=== PATIENT | female | born 1995 | race African-American/Black ===

== ENCOUNTER → 2016-11-23 | Outpatient (CLI) | payer BC ==
[2016-11-23 19:53] LABS: CHLAM PCR NOT DETECTED (NOT DETECT)
== END ==
LOC: LAB 18:16
PROVIDERS: ATTEND Nurse Practitioner Acute Care
DX: Z11.3 Encounter for screening for infections with a predominantly sexual mode of transmission (principal)
CPT/HCPCS: 87491; 87591

== ENCOUNTER 2017-08-14 22:05 | Emergency (ER) | payer BC ==
--- NOTE | 2017-08-15 00:48 | ER Document Report ---
ED General - General Chief Complaint: Shortness Of Breath Stated Complaint: CHEST PAINS Time Seen by Provider: 08/15/17 00:07 Mode of Arrival: Ambulatory Information source: Patient Notes: 22-year-old female presented to ED for complaint of right-sided chest wall pain with shortness of breath dizziness intermittently for a week. She denies any injury. She states she has no cardiac history. Her mother and father have no cardiac history. Her grandmother did have a cardiac history after having diabetes. Patient states the only past medical history she has is with the cough as a child. Patient is not on any control. She has not had any long trips. TRAVEL OUTSIDE OF THE [place] IN LAST 30 DAYS: No - HPI Onset: Last week Onset/Duration: Intermittent Quality of pain: Achy, Sharp Severity: Moderate Pain Level: 2 Associated symptoms: Chest pain - Wall pain to the right side, Shortness of breath - Intermittently, Other - Dizziness intermittently Exacerbated by: Denies Relieved by: Denies Similar symptoms previously: Yes Recently seen / treated by doctor: No - Related Data Allergies/Adverse Reactions: No Known Allergies Allergy (Verified 03/06/14 11:58) Past Medical History - General Information source: Patient - Social History Smoking Status: Current Every Day Smoker Cigarette use (# per day): Yes - 2-3 cigarettes a day Chew tobacco use (# tins/day): No Smoking Education Provided: Yes - Less than 2 minutes Frequency of alcohol use: Social Drug Abuse: None Occupation: None Lives with: Spouse/Significant other Family History: Arthritis, CAD, CVA, DM, Hyperlipidemia, Hypertension. denies: Malignancy, Thyroid Disfunction Patient has suicidal ideation: No Patient has homicidal ideation: No - Past Medical History Cardiac Medical History: Reports: None Pulmonary Medical History: Reports: Other - Pertussis as a child EENT Medical History: Reports: None Neurological Medical History: Reports: None Endocrine Medical History: Reports: None Renal/ Medical History: Reports: None Malignancy Medical History: Reports: None GI Medical History: Reports: None Musculoskeltal Medical History: Reports None Skin Medical History: Reports None Psychiatric Medical History: Reports: None Traumatic Medical History: Reports: None Infectious Medical History: Reports: None Surgical Hx: Negative Past Surgical History: Reports: None Review of Systems - Review of Systems Constitutional: No symptoms reported EENT: No symptoms reported Cardiovascular: Chest pain - Right upper chest, Dizziness - Intermittently Respiratory: Short of breath - At times Gastrointestinal: No symptoms reported Genitourinary: No symptoms reported Female Genitourinary: No symptoms reported Musculoskeletal: No symptoms reported Skin: No symptoms reported Hematologic/Lymphatic: No symptoms reported Neurological/Psychological: No symptoms reported Physical Exam - Vital signs Vitals: Temp Pulse Resp BP Pulse Ox 99.1 F 75 16 105/64 99 08/14/17 22:21 08/14/17 22:21 08/14/17 22:21 08/14/17 22:21 08/14/17 22:21 Interpretation: Normal - General General appearance: Appears well, Alert - HEENT Head: Normocephalic, Atraumatic Eyes: Normal Pupils: PERRL Ears: Normal External canal: Normal Tympanic membrane: Normal Sinus: Normal Nasal: Swelling, Clear rhinorrhea Mouth/Lips: Normal Mucous membranes: Normal Pharynx: Normal Neck: Normal - Respiratory Respiratory status: No respiratory distress. No: Respiratory distress Chest status: Tender - Right upper chest Breath sounds: Normal. No: Decreased air movement, Nonproductive cough, Productive cough, Rales, Rhonchi, Stridor, Wheezing Chest palpation: Normal - Cardiovascular Rhythm: Regular Heart sounds: Normal auscultation Murmur: No - Abdominal Inspection: Normal Distension: No distension Bowel sounds: Normal Tenderness: Nontender Organomegaly: No organomegaly - Back Back: Normal, Nontender - Extremities General upper extremity: Normal inspection, Nontender, Normal color, Normal ROM , Normal temperature General lower extremity: Normal inspection, Nontender, Normal color, Normal ROM , Normal temperature, Normal weight bearing. No: Damian's sign - Neurological Neuro grossly intact: Yes Cognition: Normal Orientation: AAOx4 Corrie Coma Scale Eye Opening: Spontaneous [place] Coma Scale Verbal: Oriented Corrie Coma Scale Motor: Obeys Commands Corrie Coma Scale Total: 15 Speech: Normal Motor strength normal: LUE, RUE, LLE, RLE Sensory: Normal - Psychological Associated symptoms: Normal affect, Normal mood - Skin Skin Temperature: Warm Skin Moisture: Dry Skin Color: Normal Course - Re-evaluation Re-evalutation: 08/15/17 02:09 Chest x-ray and EKG negative. Patient has negative PERC score. Patient was treated with aspirin and instructed to follow-up with her primary doctor. Patient has no cardiac history her mother and father have no cardiac history mother has cholesterol and blood pressure grandmother had a cardiac history after having diabetes for many years - Vital Signs Vital signs: Temp Pulse Resp BP Pulse Ox 98.1 F 68 18 109/57 L 100 08/15/17 01:34 08/15/17 01:34 08/15/17 01:34 08/15/17 01:34 08/15/17 01:34 - Diagnostic Test Radiology reviewed: Image reviewed, Reports reviewed Discharge - Discharge Clinical Impression: Chest wall pain Condition: Stable Disposition: HOME, SELF-CARE Additional Instructions: CHEST WALL PAIN: Your chest pain may be coming from the chest wall. This is often caused by straining the muscles or joints in the chest during physical activity, direct trauma, coughing, or vigorous vomiting. Persons with arthritis are especially prone to this type of pain, due to inflammation of the cartilage joints near the breast bone. Occasionally, no cause can be found. Rest from strenuous physical activity. This kind of chest pain is usually made worse by movement of the chest. Depending on the symptoms, we may prescribe medicine for pain, muscle relaxation, and antiinflammatory effects. If the pain is new, and seems to be due to muscle strain, cold packs can help. Otherwise, apply gentle warmth to the painful area for 15 minutes every hour or two. You should call contact the doctor immediately if things change. Further evaluation is needed if you develop a fever or cough, if the nature of the pain changes, or if you become short of breath. ASPIRIN: Aspirin has been shown to have a beneficial effect on blood circulation by reducing the clotting effect of platelets in the blood. These beneficial effects can be achieved by taking just a single baby (81 mg) aspirin a day. It is recommended that any person over the age of forty take a single baby aspirin every day for heart and brain circulation, unless you are allergic to aspirin or have some significant bleeding disorder. It is strongly recommended that people who have proven cardiac or blood circulation disturbances should take a baby aspirin every day. FOLLOW-UP CARE: If you have been referred to a physician for follow-up care, call the physician s office for an appointment as you were instructed or within the next two days. If you experience worsening or a significant change in your symptoms, notify the physician immediately or return to the Emergency Department at any time for re-evaluation.
--- NOTE | 2017-08-15 01:10 | RADIOLOGY REPORT (SQ) ---
EXAM DESCRIPTION: CHEST PA/LAT CLINICAL HISTORY: chest pain COMPARISON: 03/06/2014 FINDINGS: Frontal and lateral views of the chest. The cardiomediastinal silhouette has normal size and contour. No consolidation, pneumothorax, or pleural effusion. No displaced rib fractures identified. Upper abdominal soft tissues are unremarkable. IMPRESSION: 1. No acute pulmonary process identified.
[2017-08-15] MEDS ORDERED: ASPIRIN 81 MG TABLET, CHEWABLE PO ONE (01:19)
[2017-08-15 01:35] VITALS: BP 109/57
--- NOTE | 2017-08-15 09:40 | EKG REPORT ---
SEVERITY:- OTHERWISE NORMAL ECG - SINUS ARRHYTHMIA, RATE 46-68 : Confirmed by: Eunice Corral 15-Aug-2017 09:39:34
== END 2017-08-15 01:47 | disposition home or self-care (01) ==
LOC: ER 22:05
DX: R07.89 Other chest pain (principal); R06.02 Shortness of breath; R42 Dizziness and giddiness; F17.210 Nicotine dependence, cigarettes, uncomplicated
CPT/HCPCS: 71020; 93005; 93010; 99285

== ENCOUNTER 2017-10-15 17:54 | Emergency (ER) | payer BC ==
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
[2017-10-16] MEDS ORDERED: ONDANSETRON 4 MG TAB.RAPDIS PO ONE (00:57)
[2017-10-16] MEDS ORDERED: AZITHROMYCIN 250 MG TABLET PO ONE (00:57)
[2017-10-16] MEDS ORDERED: LIDOCAINE 1% INJ-PF (10 MG/ML) 30 ML SDV INFIL ONE (00:57)
[2017-10-16] MEDS ORDERED: CEFTRIAXONE INJ 250 MG VIAL IM ONE (00:57)
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
[2017-10-16 02:01] VITALS: BP 109/77
[2017-10-16 03:34] LABS: CHLAM PCR DETECTED (NOT DETECT); GON PCR NOT DETECTED (NOT DETECT)
== END 2017-10-16 02:02 | disposition home or self-care (01) ==
LOC: ER 17:54
DX: T76.21XA Adult sexual abuse, suspected, initial encounter (principal); A54.9 Gonococcal infection, unspecified; F17.200 Nicotine dependence, unspecified, uncomplicated
CPT/HCPCS: 99285; 96372; 81025; 87491; 87591; S0119; J3490; J0696

== ENCOUNTER → 2019-05-14 | Outpatient (CLI) | payer OTHER ==
[2019-05-14 18:42] LABS: BACTERIA (WET MOUNT) 4+ BACTERIA SEEN; EPITHELIALS (WET MOUNT) 4+ EPITHELIALS SEEN; T.VAGINALIS (WET MOUNT) NO TRICHOMONAS SEEN; WBCS (WET MOUNT) 3+ WBCS SEEN; YEAST (WET MOUNT) NO YEAST SEEN
[2019-05-14 20:15] LABS: CHLAM PCR DETECTED (NOT DETECT)
== END ==
LOC: LAB 18:30
PROVIDERS: ATTEND Nurse Practitioner Acute Care
DX: N89.8 Other specified noninflammatory disorders of vagina (principal); R10.30 Lower abdominal pain, unspecified
CPT/HCPCS: 87086; 87088; 87210; 87491; 87591

== ENCOUNTER 2019-05-15 18:39 | Emergency (ER) | payer OTHER ==
[2019-05-15] MEDS ORDERED: ONDANSETRON HCL INJ/PF 4 MG/2 ML SDV IV ONE (19:12)
[2019-05-15] MEDS ORDERED: NORMAL SALINE 1000 ML 1,000 ML IV ONE (19:12)
--- NOTE | 2019-05-15 19:14 | ER Document Report ---
ED Medical Screen (RME) - General Chief Complaint: Abdominal Pain Stated Complaint: ABDOMINAL PAIN, BACK PAIN Time Seen by Provider: 05/15/19 19:04 Primary Care Provider: FRANDY CARRILLO NP [Primary Care Provider] - Follow up as needed Notes: Patient is a 24-year-old female who presents to the emergency department with a chief complaint of back pain and abdominal pain. Patient reports that on Monday she developed lower back pain that radiates into the mid back. Patient reports that this feels like a throbbing type of pain as well as burning. Patient denies injury or fall. Patient states later that day she did develop right mid abdominal pain. Patient reports his pain is worse when she lies down. Patient reports that this abdominal pain feels like contractions. Patient states her last bowel movement was Monday and this is not normal for her to be constipated. Patient reports increase gas and bloating. Patient states she was seen at the urgent care yesterday where she was given Robaxin and ibuprofen for her back pain. She states they did check a urine but not to the results for another few days. Patient reports nausea and dry heaving. Patient denies diarrhea. TRAVEL OUTSIDE OF THE [place] IN LAST 30 DAYS: No - Related Data Allergies/Adverse Reactions: No Known Allergies Allergy (Verified 05/15/19 18:40) Past Medical History Renal/ Medical History: Denies: Hx Peritoneal Dialysis Physical Exam - Vital signs Vitals: Temp Pulse Resp BP Pulse Ox 98.6 F 112 H 18 119/82 100 05/15/19 18:43 05/15/19 18:43 05/15/19 18:43 05/15/19 18:43 05/15/19 18:43 - Abdominal Inspection: Normal Distension: No distension Bowel sounds: Normal Tenderness: Nontender Organomegaly: No organomegaly Course - Re-evaluation Re-evalutation: 05/15/19 19:14 I have greeted and performed a rapid initial assessment of this patient. A comprehensive ED assessment and evaluation of the patient, analysis of test results and completion of the medical decision making process will be conducted by additional ED providers. - Vital Signs Vital signs: Temp Pulse Resp BP Pulse Ox 98.6 F 112 H 18 119/82 100 05/15/19 18:43 05/15/19 18:43 05/15/19 18:43 05/15/19 18:43 05/15/19 18:43 Doctor's Discharge - Discharge Referrals: FRANDY CARRILLO, CLINICAL SCIENCES PROFESSOR [Primary Care Provider] - Follow up as needed
[2019-05-15 19:56] LABS: ABSOLUTE LYMPHOCYTES (AUTO) 1.2 10^3/uL (0.5-4.7); ABSOLUTE MONOCYTES (AUTO) 0.8 10^3/uL (0.1-1.4); ABSOLUTE NEUT (AUTO) 6.8 10^3/uL (1.7-8.2); BASOPHILS % (AUTO) 0.3 % (0-2); EOSINOPHILS % (AUTO) 0.5 % (0-6); HEMOGLOBIN 15.1 g/dL (12.0-15.5); LYMPHOCYTES % (AUTO) 13.3 % (13-45); MEAN CORPUSCULAR HEMOGLOBIN 29.5 pg (27.0-33.4); MEAN CORPUSCULAR HGB CONC 32.9 g/dL (32.0-36.0); MEAN CORPUSCULAR VOLUME 90 fl (80-97); MONOCYTES % (AUTO) 9.3 % (3-13); PLATELET COUNT 192 10^3/uL (150-450); RED BLOOD COUNT 5.12 10^6/uL (3.72-5.28); RED CELL DISTRIBUTION WIDTH 13.4 % (11.5-14.0); SEGMENTED NEUTROPHILS % (AUTO) 76.6 % (42-78); TOTAL CELLS COUNTED % (AUTO) 100 %; WHITE BLOOD COUNT 8.9 10^3/uL (4.0-10.5)
[2019-05-15 20:00] LABS: APPEARANCE,URINE CLEAR; BILIRUBIN,URINE NEGATIVE (NEGATIVE); COLOR,URINE STRAW; GLUCOSE, URINE NEGATIVE (NEGATIVE); KETONES,URINE NEGATIVE (NEGATIVE); LEUKOCYTE ESTERASE,URINE TRACE (NEGATIVE); NITRITE,URINE NEGATIVE (NEGATIVE); PROTEIN,URINE NEGATIVE (NEGATIVE); URINE SPECIFIC GRAVITY 1.004; UROBILINOGEN,URINE NEGATIVE mg/dL (<2.0)
[2019-05-15 20:11] LABS: ALBUMIN 5.1 g/dL (3.5-5.0); ALKALINE PHOSPHATASE 44 U/L (38-126); ANION GAP 11 (5-19); ASPARTATE AMINO TRANSFERASE 32 U/L (14-36); BILIRUBIN,DIRECT 0.3 mg/dL (0.0-0.4); BILIRUBIN,TOTAL 0.8 mg/dL (0.2-1.3); BLOOD UREA NITROGEN 10 mg/dL (7-20); CALCIUM 10.2 mg/dL (8.4-10.2); CARBON DIOXIDE 33 mmol/L (22-30); CHLORIDE 99 mmol/L (98-107); GLUCOSE 99 mg/dL (75-110); POTASSIUM 3.9 mmol/L (3.6-5.0); TOTAL PROTEIN 9.1 g/dL (6.3-8.2)
[2019-05-15] MEDS ORDERED: MAGNESIUM CITRATE 296 ML BOTTLE PO ONE (21:27)
--- NOTE | 2019-05-15 21:30 | ER Document Report ---
ED GI/ - General Chief Complaint: Abdominal Pain Stated Complaint: ABDOMINAL PAIN, BACK PAIN Time Seen by Provider: 05/15/19 19:04 Primary Care Provider: FRANDY CARRILLO NP [NURSE PRACTITIONER] - Follow up as needed Mode of Arrival: Ambulatory Information source: Patient Notes: 24-year-old female presents to ED for complaint of back pain and abdominal pain. She states that Monday she developed low back pain that radiates around to the middle of the back. She states she feels a throbbing pain and burning at times. She states later that day she developed right mid abdomen pain. She states that pain got worse when she laid down. She states that at times it feels like it is thanh and throbbing. She states her last bowel movement was Monday and she is not normally constipated. She said she has felt bloated and gassy. She states she went to the urgent care yesterday and they gave her some Robaxin for her back pain and sent her home. Patient is alert oriented respirations regular and unlabored speaking in full sentences. TRAVEL OUTSIDE OF THE [place] IN LAST 30 DAYS: No - HPI Patient complains to provider of: Abdominal pain Onset: Other - Monday Timing/Duration: Gradual, Intermittent Quality of pain: Other - Gassy bloated sometimes sharp sometimes cramping Severity at maximum: Severe Severity in ED: Mild Pain Level: 2 Location: LUQ, LLQ, RUQ, RLQ, Suprapubic Vaginal bleeding (Compared to normal period): None Associated symptoms: Nausea, Other - No stool since Monday Exacerbated by: Supine, Movement Relieved by: Denies Similar symptoms previously: Yes Recently seen / treated by doctor: Yes - Related Data Allergies/Adverse Reactions: No Known Allergies Allergy (Verified 05/15/19 18:40) Past Medical History - General Information source: Patient - Social History Smoking Status: Never Smoker Chew tobacco use (# tins/day): No Frequency of alcohol use: Social Drug Abuse: None Occupation: [employer] Lives with: Parents Family History: Arthritis, CAD, CVA, DM, Hyperlipidemia, Hypertension Patient has suicidal ideation: No Patient has homicidal ideation: No - Past Medical History Cardiac Medical History: Reports: None Pulmonary Medical History: Reports: None EENT Medical History: Reports: None Neurological Medical History: Reports: None Endocrine Medical History: Reports: None Renal/ Medical History: Reports: None Malignancy Medical History: Reports: None GI Medical History: Reports: None Musculoskeletal Medical History: Reports None Skin Medical History: Reports None Psychiatric Medical History: Reports: None Traumatic Medical History: Reports: None Infectious Medical History: Reports: None Surgical Hx: Negative Past Surgical History: Reports: None - Immunizations Immunizations up to date: Yes Hx Diphtheria, Pertussis, Tetanus Vaccination: Yes Review of Systems - Review of Systems Constitutional: No symptoms reported EENT: No symptoms reported Cardiovascular: No symptoms reported Respiratory: No symptoms reported Gastrointestinal: No symptoms reported Genitourinary: No symptoms reported Female Genitourinary: No symptoms reported Musculoskeletal: No symptoms reported Skin: No symptoms reported Hematologic/Lymphatic: No symptoms reported Neurological/Psychological: No symptoms reported -: Yes All other systems reviewed and negative Physical Exam - Vital signs Vitals: Temp Pulse Resp BP Pulse Ox 98.6 F 112 H 18 119/82 100 05/15/19 18:43 05/15/19 18:43 05/15/19 18:43 05/15/19 18:43 05/15/19 18:43 Interpretation: Normal - General General appearance: Appears well, Alert - HEENT Head: Normocephalic, Atraumatic Eyes: Normal Pupils: PERRL - Respiratory Respiratory status: No respiratory distress Chest status: Nontender Breath sounds: Normal Chest palpation: Normal - Cardiovascular Rhythm: Regular Heart sounds: Normal auscultation Murmur: No - Abdominal Inspection: Normal Distension: No distension Bowel sounds: Hyperactive Tenderness: Tender Organomegaly: No organomegaly - Back Back: Normal, Nontender - Extremities General upper extremity: Normal inspection, Nontender, Normal color, Normal ROM, Normal temperature General lower extremity: Normal inspection, Nontender, Normal color, Normal ROM, Normal temperature, Normal weight bearing. No: Damian's sign - Neurological Neuro grossly intact: Yes Cognition: Normal Orientation: AAOx4 Mobile Coma Scale Eye Opening: Spontaneous Mobile Coma Scale Verbal: Oriented Corrie Coma Scale Motor: Obeys Commands Corrie Coma Scale Total: 15 Speech: Normal Motor strength normal: LUE, RUE, LLE, RLE Sensory: Normal - Psychological Associated symptoms: Normal affect, Normal mood - Skin Skin Temperature: Warm Skin Moisture: Dry Skin Color: Normal Course - Re-evaluation Re-evalutation: 05/16/19 01:45 Labs and x-rays were discussed with patient and written report of labs and x-ray given to patient before discharge. Patient had been given a liter of fluids b efore I examined her. She was given a bottle of mag citrate before discharge. Patient was shown her x-rays so she would understand why she needed to ensure that she had a good bowel movement. Patient was encouraged to use MiraLAX at home. Patient verbalized understanding and agreement with treatment plan and patient was discharged home. - Vital Signs Vital signs: Temp Pulse Resp BP Pulse Ox 98.1 F 74 16 117/85 98 05/15/19 22:11 05/15/19 22:11 05/15/19 22:11 05/15/19 22:11 05/15/19 22:11 - Laboratory Result Diagrams: 05/15/19 19:32 05/15/19 19:32 Laboratory results interpreted by me: 05/15/19 05/15/19 19:32 19:32 Carbon Dioxide 33 H Total Protein 9.1 H Albumin 5.1 H Ur Leukocyte Esterase TRACE H - Diagnostic Test Radiology reviewed: Image reviewed, Reports reviewed Discharge - Discharge Clinical Impression: Abdominal pain Qualifiers: Abdominal location: generalized Qualified Code(s): R10.84 - Generalized abdominal pain Constipation Qualifiers: Constipation type: unspecified constipation type Qualified Code(s): K59.00 - Constipation, unspecified Condition: Stable Disposition: HOME, SELF-CARE Additional Instructions: ABDOMINAL PAIN: There are many causes of abdominal pain. Pain can mean a serious problem requiring surgery (such as appendicitis). It can also be an innocent problem that goes away on its own (such as a viral infection). Often, time must pass to determine the cause of pain. The physician does not feel that hospitalization is necessary, at present. Things may change within the next 24 hours. Call the doctor or come back for re- examination if any problems occur, such as: (1) Pain that becomes more severe, steady, or becomes concentrated in one specific area. Also, pain that is more severe with movement or coughing. (2) Vomiting that persists or becomes more frequent. (3) Blood in the vomitus, urine, or bowel movements. Blood in the stool may have a tarry or black appearance. (4) Shaking chills or fever greater than 100 degrees F. (5) The abdomen becomes more distended or swollen. (6) Bowel movements cease. (7) Failure to improve as expected. NORMAL EXAM AND WORKUP: At this time, your examination and workup show no significant abnormality. No significant abnormal physical findings are noted. All laboratory, EKG, and imaging (x-ray, CT scans, ultrasound) studies that were ordered show no significant abnormality. Although your examination and all studies that were ordered showed no significant abnormal finding, there are no examinations and no studies that are 100% accurate. There is always the possibility that some abnormality could exist and not be detected with physical examination or within the limits and capabilities of laboratory and other studies. You should return or follow up as you were instructed on your visit today for further evaluation if your symptoms do not resolve. CONSTIPATION: Constipation is a common problem. It is especially likely as you get older. Constipation is a common cause of abdominal pain, but sometimes causes no symptoms at all. Causes of constipation include certain medications, dehydration, diets, inactivity, and low-fiber intake. Rarely, it can be a symptom of underlying disease. The physician has evaluated you for this. Avoid constipation by eating a diet high in fiber, fruits, and vegetables. Drink plenty of liquids. Get regular exercise. If possible, avoid constipating medicines like narcotic pain medication. Some vitamin tablets can cause constipation. Stool softeners may be needed for difficult cases. An excellent stool softener is Konsyl which is available at [place] [place] [facility]. Just add a teaspoon to a glass of pineapple or orange juice daily or twice a day if needed. Laxatives are useful for occasional constipation. You should use them only when necessary. Too-frequent use can make your bowels dependent on them. Some over the counter laxatives available without prescription are: Milk of Magnesia, 1-2 tablespoons twice a day Dulcolax, 5 mg pill or 10 mg suppository. Citrate of Magnesia, 4-5 ounces a day for a day or two For acute constipation, Fleet's Enemas and Dulcolax suppositories are helpful. Chronic, [facility] use of laxatives or enemas is not a good idea. Your bowel may become dependant on them. You do not need to have a bowel movement every day. Many people do fine with a bowel movement every three or four days. You should call your doctor or return for re-evaluation if you pass blood in the stool, or if you develop fever or increasing abdominal pain. BULK LAXATIVES: Bulk laxatives make the stool softer and bulkier. They're useful for preventing constipation. You can choose between psyllium, methylcellulose, and polycarbophil. They are available without a prescription. Psyllium brand names include Konsyl, Metamucil, Perdiem, Effer-Syllium and Hydrocil. It's available as powder, flavored drink powder, or chewable. The usual dose of psyllium powder is one heaping teaspoon in water each morning, increasing to twice a day if needed. [place] juice can disguise the slightly grainy texture. Methylcellulose is marketed as Citrucel and other brands. The average dose is two grams in a cup of water one to three times a day. Polycarbophil is marketed as Fiber-Con. Take two tablets with a cup of water one to three times a day. LAXATIVE: A laxative agent has been prescribed for your condition. This should result in passage of stool within 12 hours. Some mild intestinal cramping is common as the hard stool begins to move. You may have loose or runny stools for a short time. Contact your doctor if there is severe cramping, vomiting, or passage of blood. Return for further care if this medicine fails to improve your condition. FOLLOW-UP CARE: If you have been referred to a physician for follow-up care, call the physicians office for an appointment as you were instructed or within the next two days. If you experience worsening or a significant change in your symptoms, notify the physician immediately or return to the Emergency Department at any time for re-evaluation. Referrals: FRANDY CRARILLO, ELECTRONICS INSTALLER [NURSE PRACTITIONER] - Follow up as needed
--- NOTE | 2019-05-15 22:03 | RADIOLOGY REPORT (SQ) ---
EXAM DESCRIPTION: XR ABDOMEN 1 VIEW (KUB) COMPLETED DATE/TME: 05/15/2019 21:06 CLINICAL HISTORY: 24 years, Female, abdominal/ back pain no bm since monday COMPARISON: None. NUMBER OF VIEWS: One TECHNIQUE: Single frontal view of the abdomen was obtained. LIMITATIONS: None. FINDINGS: Gas and a moderate amount of stool are noted throughout the large bowel. Scattered nondilated loops of small bowel are visible throughout the abdomen. No suspicious osseous anomalies. No suspicious soft tissue calcifications. IMPRESSION: Nonobstructive bowel gas pattern. Moderate colonic stool load. copyright 2010 [employer] [employer]- All Rights Reserved
[2019-05-15 22:17] VITALS: BP 117/85
== END 2019-05-15 22:17 | disposition home or self-care (01) ==
LOC: ER 18:39
DX: R10.84 Generalized abdominal pain (principal); K59.00 Constipation, unspecified; M54.9 Dorsalgia, unspecified
CPT/HCPCS: 36415; 83690; 85025; 81025; 80053; 81001; 74018; J3490; J2405; J7030

== ENCOUNTER 2019-10-24 11:32 | Emergency (ER) | payer SELFPAY ==
[2019-10-24 11:41] VITALS: BP 107/68
[2019-10-24] MEDS ORDERED: PSEUDOEPHEDRINE HCL 30 MG TABLET PO ONE (12:04)
[2019-10-24] MEDS ORDERED: IBUPROFEN 800 MG TABLET PO ONE (12:04)
[2019-10-24] MEDS ORDERED: ONDANSETRON 4 MG TAB.RAPDIS PO ONE (12:04)
--- NOTE | 2019-10-24 12:06 | ER Document Report ---
HPI - HPI Patient complains to provider of: Cold symptoms Time Seen by Provider: 10/24/19 11:59 Onset/Duration: Persistent Quality of pain: Achy Pain Level: 3 Context: Patient presents with a 4-day history of body aches, chills sore throat cough and congestion. Patient does complain of nausea. No vomiting or diarrhea. Patient has had recent sick contacts. Associated Symptoms: Nonproductive cough, Fever, Headache, Nausea, Rhinnorhea, Sore throat. denies: Chest pain, Earache, Vomiting Exacerbated by: Denies Relieved by: Denies Similar symptoms previously: No Recently seen / treated by doctor: No - ROS ROS below otherwise negative: Yes Systems Reviewed and Negative: Yes All other systems reviewed and negative - CONSTITUTIONAL Constitutional: REPORTS: Fever, Chills - EENT EENT: REPORTS: Sore Throat, Congestion. DENIES: Ear Pain - RESPIRATORY Respiratory: REPORTS: Coughing - GASTROINTESTINAL Gastrointestinal: REPORTS: Nausea. 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 IN LAST 30 DAYS: No - HEENT HEENT: Atraumatic, Normocephalic, Pharyngeal Tenderness. negative: Pharyngeal Exudate, Pharyngeal Erythema, Tympanic Membrane Red, Tympanic Membrane Bulging - NECK Neck: Normal Inspection, Supple. negative: Lymphadenopathy-Left, Lymphadenopathy-Right - RESPIRATORY Respiratory: Breath Sounds Normal, No Respiratory Distress - CARDIOVASCULAR Cardiovascular: Regular Rate, Regular Rhythm, No Murmur - GI/ABDOMEN Gastrointestinal: Abdomen Soft - BACK Back: Normal Inspection - MUSCULOSKELETAL/EXTREMETIES Musculoskeletal/Extremeties: MAEW - NEURO Level of Consciousness: Awake, Alert, Appropriate Motor/Sensory: No Motor Deficit - DERM Integumentary: Warm, Dry, No Rash Course - Re-evaluation Re-evalutation: 10/24/19 12:54 Patient with negative strep test and normal chest x-ray. Patient otherwise nontoxic in appearance with likely viral upper respiratory infection. Good return precautions discussed with patient. - Vital Signs Vital signs: Temp Pulse Resp BP Pulse Ox 98.3 F 70 16 107/68 98 10/24/19 11:40 10/24/19 11:40 10/24/19 11:40 10/24/19 11:40 10/24/19 11:40 - Laboratory Laboratory results interpreted by me: 10/24/19 12:53 Labs- Entire Visit 10/24/19 12:06 Group A Strep Rapid NEGATIVE - Diagnostic Test Radiology reviewed: Reports reviewed Discharge - Discharge Clinical Impression: Upper respiratory infection Qualifiers: URI type: unspecified URI Qualified Code(s): J06.9 - Acute upper respiratory infection, unspecified Condition: Stable Disposition: HOME, SELF-CARE Instructions: Acetaminophen, Sore Throat ([facility]), Upper Respiratory Illness ([facility]) Additional Instructions: Return immediately for any new or worsening symptoms Followup with your primary care provider, call tomorrow to make a followup appointment Throat culture is pending, we will call if you need any different treatment Prescriptions: Guaifenesin/Pseudoephedrne HCl [Mucinex D ER 1,200-120 mg Tab] 1 each PO Q12 PRN #12 tab.er.12h PRN Reason: Naproxen [Naprosyn 250 Nmg Tablet] 1 tab PO BID #14 tablet Ondansetron HCl [Zofran 4 mg Tablet] 1 - 2 tab PO Q6 PRN #15 tablet PRN Reason: Forms: Return to Work Referrals: [facility] [Provider Group] - Follow up as needed [facility] [Provider Group] - Follow up as needed
--- NOTE | 2019-10-24 12:33 | RADIOLOGY REPORT (SQ) ---
EXAM DESCRIPTION: CHEST 2 VIEWS COMPLETED DATE/TIME: 10/24/2019 12:25 pm REASON FOR STUDY: cough COMPARISON: 08/15/2017. EXAM PARAMETERS: NUMBER OF VIEWS: two views TECHNIQUE: Digital Frontal and Lateral radiographic views of the chest acquired. RADIATION DOSE: NA LIMITATIONS: none FINDINGS: LUNGS AND PLEURA: No opacities, masses or pneumothorax. No pleural effusion. MEDIASTINUM AND HILAR STRUCTURES: No masses or contour abnormalities. HEART AND VASCULAR STRUCTURES: Heart normal size. No evidence for failure. BONES: No acute findings. HARDWARE: None in the chest. OTHER: No other significant finding. IMPRESSION: NO ACUTE RADIOGRAPHIC FINDING IN THE CHEST. TECHNICAL DOCUMENTATION: JOB ID: [id number] [employer]- All Rights Reserved Reading location - IP/workstation name: [email or web address]
== END 2019-10-24 13:06 | disposition home or self-care (01) ==
LOC: ER 11:32
DX: J06.9 Acute upper respiratory infection, unspecified (principal); J02.9 Acute pharyngitis, unspecified; R05 Cough; R11.0 Nausea; R50.9 Fever, unspecified; R51 Headache; J34.89 Other specified disorders of nose and nasal sinuses; F17.200 Nicotine dependence, unspecified, uncomplicated
CPT/HCPCS: 99283; 87070; 87880; 87077; 71046; S0119

== ENCOUNTER 2020-10-01 04:28 | Outpatient (CLI) | payer MEDICAID ==
[2020-10-01 05:14] LABS: APPEARANCE,URINE SLIGHTLY-CLOUDY; BILIRUBIN,URINE NEGATIVE (NEGATIVE); COLOR,URINE YELLOW; GLUCOSE, URINE NEGATIVE (NEGATIVE); KETONES,URINE NEGATIVE (NEGATIVE); LEUKOCYTE ESTERASE,URINE MODERATE (NEGATIVE); NITRITE,URINE NEGATIVE (NEGATIVE); PROTEIN,URINE NEGATIVE (NEGATIVE); URINE SPECIFIC GRAVITY 1.008; UROBILINOGEN,URINE NEGATIVE mg/dL (<2.0)
[2020-10-01 05:49] LABS: URINE AMPHETAMINES SCREEN NEGATIVE; URINE BARBITURATES SCREEN NEGATIVE; URINE BENZODIAZEPINES SCREEN NEGATIVE; URINE COCAINE SCREEN NEGATIVE; URINE MARIJUANA (THC) SCREEN NEGATIVE; URINE METHADONE SCREEN NEGATIVE; URINE PHENCYCLIDINE SCREEN NEGATIVE
--- NOTE | 2020-10-01 06:47 | Non Stress Test Report ---
Non Stress Test Datetime Report Generated by CPN: 10/01/2020 06:47 DEMOGRAPHIC EGA NST: 38.3 INDICATION Indication for Study (NST) Other: Gestational age greater than 32 weeks VITAL SIGNS Temperature - NST: 98.2 Pulse - NST: 90 RESP - NST: 17 NBPSYS NST: 111 NBPDIA NST: 81 MONITORING Monitor Explained: Monitor Explained; Test Explained; Patient Verbalized Understanding Time on Monitor: 10/01/2020 04:44 Time off Monitor: 10/01/2020 05:33 NST Duration: 49 NST INTERVENTIONS NST Interventions: PO Hydration; Reposition Patient Physician Notified NST: Dr. Vasquez BABY A: [id number] BABY A Movement : Present Contraction Frequency : irregular FHR Baseline : 135 Accelerations : 15X15 Decelerations : None Variability : Moderate 6-25bpm NST Review: Meets Criteria for Reactive NST NST Review and Verified By : Rico Ramirez RN NST Results: Reactive NST REPORT Report Trigger: Send Report
== END 2020-10-01 06:48 | disposition home or self-care (01) ==
LOC: LC 04:28
PROVIDERS: ATTEND Obstetrics & Gynecology
DX: O47.1 False labor at or after 37 completed weeks of gestation (principal); Z3A.38 38 weeks gestation of pregnancy
CPT/HCPCS: 59025; 80307; 81005

== ENCOUNTER 2020-10-01 19:40 | Inpatient (IN) | payer MEDICAID ==
[2020-10-01 20:08] LABS: APPEARANCE,URINE CLEAR; BILIRUBIN,URINE NEGATIVE (NEGATIVE); COLOR,URINE STRAW; GLUCOSE, URINE NEGATIVE (NEGATIVE); KETONES,URINE NEGATIVE (NEGATIVE); LEUKOCYTE ESTERASE,URINE NEGATIVE (NEGATIVE); NITRITE,URINE NEGATIVE (NEGATIVE); PROTEIN,URINE NEGATIVE (NEGATIVE); URINE SPECIFIC GRAVITY 1.004; UROBILINOGEN,URINE NEGATIVE mg/dL (<2.0)
[2020-10-01 20:25] LABS: URINE AMPHETAMINES SCREEN NEGATIVE; URINE BARBITURATES SCREEN NEGATIVE; URINE BENZODIAZEPINES SCREEN NEGATIVE; URINE COCAINE SCREEN NEGATIVE; URINE MARIJUANA (THC) SCREEN NEGATIVE; URINE PHENCYCLIDINE SCREEN NEGATIVE
[2020-10-01 20:31] LABS: URINE METHADONE SCREEN NEGATIVE
[2020-10-01] MEDS ORDERED: RINGERS SOLUTION,LACTATED 1,000 ML IV ONE (23:18)
[2020-10-01] MEDS ORDERED: HYDROXYZINE PAMOATE 50 MG CAPSULE PO ONE (23:18)
[2020-10-01] MEDS ORDERED: OXYTOCIN 10 UNIT/ML VIAL ONE (23:27)
[2020-10-01] MEDS ORDERED: HYDROXYZINE PAMOATE 50 MG CAPSULE ONE (23:28)
[2020-10-01] MEDS ORDERED: MISOPROSTOL 0.2 MG TABLET ONE (23:28)
[2020-10-01] MEDS ORDERED: OXYTOCIN/0.9 % SODIUM CHLORIDE 30 UNIT/500 ML RTUINJ ONE (23:28)
[2020-10-01] MEDS ORDERED: LIDOCAINE 1% INJ-PF (10 MG/ML) 30 ML SDV ONE (23:28)
[2020-10-01 23:51] LABS: ABSOLUTE LYMPHOCYTES (AUTO) 1.5 10^3/uL (0.5-4.7); ABSOLUTE MONOCYTES (AUTO) 0.8 10^3/uL (0.1-1.4); ABSOLUTE NEUT (AUTO) 7.3 10^3/uL (1.7-8.2); BASOPHILS % (AUTO) 0.5 % (0-2); EOSINOPHILS % (AUTO) 0.1 % (0-6); HEMATOCRIT 35.4 % (36.0-47.0); HEMOGLOBIN 11.5 g/dL (12.0-15.5); LYMPHOCYTES % (AUTO) 15.6 % (13-45); MEAN CORPUSCULAR HEMOGLOBIN 26.1 pg (27.0-33.4); MEAN CORPUSCULAR HGB CONC 32.4 g/dL (32.0-36.0); MEAN CORPUSCULAR VOLUME 81 fl (80-97); MONOCYTES % (AUTO) 8.5 % (3-13); PLATELET COUNT 111 10^3/uL (150-450); RED CELL DISTRIBUTION WIDTH 15.3 % (11.5-14.0); SEGMENTED NEUTROPHILS % (AUTO) 75.3 % (42-78); TOTAL CELLS COUNTED % (AUTO) 100 %; WHITE BLOOD COUNT 9.8 10^3/uL (4.0-10.5)
--- NOTE | 2020-10-01 23:51 | Admission Physical ---
Datetime Report Generated by CPN: 10/01/2020 23:50 CURRENT ADMISSION Chief Complaint: Uterine Contractions Indication for Induction: Not Applicable Admit Impression : Term, Intrauterine Admit Plan: Initiate Labor Protocol ALLERGIES Medication Allergies: No Medication Allergies: No Known Allergies (10/01/2020) Latex: No Latex Allergies Food Allergies: none Environmental Allergies: none OBSTETRICAL HISTORY EDC: 10/12/2020 00:00 : 2 Para: 1 Term: 1 : 0 SAB: 0 IAB: 0 Livin Cesareans: 0 VBACs: 0 Multiple Births: 0 Gestational Diabetes: No Rh Sensitization: No Incompetent Cervix: No KRAIG: No Infertility: No ART Treatment: No Uterine Anomaly: No IUGR: No Hx Previous C/S: No Macrosomia: No Hx Loss/Stillborn: No PIH: No Hx : No Placenta Previa/Abruption: No Depression/PP Depression: No PTL/PROM: No Post Hemorrhage: No Current Procedures: Ultrasound; NST Obstetrical History Comments: - 2011 G2- Current SEE RECORDS Alcohol: No Marijuana : No Cocaine: No Other Illicit Drugs: No Cigarettes: Former Smoker. [id number] MEDICAL HISTORY Diabetes: No Blood Transfusion: No Pulmonary Disease (Asthma, TB): No Breast Disease: No Hypertension: No Tariff Counsel Surgery: No Heart Disease: No Hosp/Surgery: Yes Autoimmune Disorder: No Anesthetic Complications: No Kidney Disease: No Abnormal Pap Smear: No Neuro/Epilepsy: No Psychiatric Disorders: No Other Medical Diseases: No Hepatitis/Liver Disease: No Significant Family History: No Varicosities/Phlebitis: No Trauma/Violence : No Thyroid Dysfunction: No Medical History Comments: child , wisdom teeth in 2012, treated for BV this , had pertussis as an infant INFECTIOUS HISTORY Gonorrhea: No Genital Herpes: No Chlamydia: Yes Tuberculosis: No Syphilis: No Hepatitis: No HIV/AIDS Exposure: No Rash or Viral Illness: No HPV: No Infectious History Comments: Chlamydia in 2011 PHYSICAL EXAM General: Normal HEENT: Normal Neurologic: Normal Thyroid: Normal Heart: Normal Lungs: Normal Breast: Deferred Back: Normal Abdomen: Normal Genitourinary Exam: Normal Extremities: Normal DTRs: Normal Pelvic Type: Adequate Vital Signs: Reviewed VAGINAL EXAM Dilatation: 5 Effacement: 80 Station: -3 MEMBRANES Pooling: Negative Membranes: Intact FETUS A EGA: 38.3 Monitoring: External US FHR- Baseline: 120 Variability: Moderate 6-25bpm Decelerations: None FHR Category: Category I Admit Comment: Will admit as she looks like she is in early labor PLANS FOR LABOR AND DELIVERY Labor and Delivery: None Pain Management: Epidural Feeding Preference: Breast Benefit of Breast Feed Discussed: Yes Circumcision: Yes INFORMED CONSENT Signature: with User ID: [email or web address]
[2020-10-02] MEDS: RINGERS SOLUTION,LACTATED 1,000 ML IV PRN ×2 (03:17→05:08)
[2020-10-02] MEDS ORDERED: ROPIVACAINE HCL 0.2% INJ/PF (2 MG/ML) 20 ML SDV ONE (03:48)
[2020-10-02] MEDS ORDERED: EPHEDRINE SULFATE INJ 50 MG/1 ML AMPULE ONE (03:48)
[2020-10-02] MEDS ORDERED: FENTANYL/BUPIVACAINE/NS/PF 300 MCG/150 ML RTUINJ EPI ONE (03:48)
[2020-10-02] MEDS ORDERED: BENZOCAINE/MENTHOL AEROSOL SPRAY 56 ML TOP PRN (09:23)
[2020-10-02] MEDS ORDERED: ACETAMINOPHEN WITH CODEINE #3 TABLET PO PRN ×2 (09:23)
[2020-10-02] MEDS ORDERED: MEASLES,MUMPS&RUBELLA VACC/PF 0.5 ML VIAL SUBCUT PRN (09:23)
[2020-10-02] MEDS ORDERED: VARICELLA VACC/PF (1350 UNIT/0.5 ML) 0.5 ML VIAL SUBCUT PRN (09:23)
[2020-10-02] MEDS ORDERED: ZOLPIDEM TARTRATE 5 MG TABLET PO PRN (09:23)
[2020-10-02] MEDS ORDERED: DIPHENHYDRAMINE HCL 25 MG CAPSULE PO PRN (09:23)
[2020-10-02] MEDS ORDERED: ACETAMINOPHEN 650 MG SUPP.RECT PR PRN (09:23)
[2020-10-02] MEDS ORDERED: MAG HYDROX/AL HYDROX/SIMETH SUSP 30 ML UDCUP PO PRN (09:23)
[2020-10-02] MEDS ORDERED: ACETAMINOPHEN 325 MG TABLET PO PRN (09:23)
[2020-10-02] MEDS ORDERED: MAGNESIUM HYDROXIDE SUSP 30 ML UDCUP PO PRN (09:23)
[2020-10-02] MEDS ORDERED: FAMOTIDINE 20 MG TABLET PO PRN (09:23)
[2020-10-02] MEDS ORDERED: OXYTOCIN/0.9 % SODIUM CHLORIDE 30 UNIT/500 ML RTUINJ IV PRN (09:23)
[2020-10-02] MEDS ORDERED: PSEUDOEPHEDRINE HCL 30 MG TABLET PO PRN (09:23)
[2020-10-02] MEDS ORDERED: GLYCERIN/WITCH HAZEL LEAF 1 EACH MED..WIPE TP PRN (09:23)
[2020-10-02] MEDS ORDERED: DIPH/PERTUSS(ACELL)/TETANUS VAC/PF 0.5 ML SYR (>=10YO) IM PRN (09:23)
[2020-10-02] MEDS ORDERED: DIBUCAINE 1% OINTMENT 28 GM TP PRN (09:23)
[2020-10-02 10:51] LABS: HEMATOCRIT 36.4 % (36.0-47.0); HEMOGLOBIN 11.5 g/dL (12.0-15.5); MEAN CORPUSCULAR HEMOGLOBIN 25.7 pg (27.0-33.4); MEAN CORPUSCULAR HGB CONC 31.6 g/dL (32.0-36.0); MEAN CORPUSCULAR VOLUME 81 fl (80-97); PLATELET COUNT 116 10^3/uL (150-450); RED BLOOD COUNT 4.47 10^6/uL (3.72-5.28); RED CELL DISTRIBUTION WIDTH 15.5 % (11.5-14.0); WHITE BLOOD COUNT 11.2 10^3/uL (4.0-10.5)
--- NOTE | 2020-10-02 14:55 | Birth Certificate Data ---
Cert Data Datetime Report Generated by CPN: 10/02/2020 14:55 CERTIFICATE DATA Delivery Provider: Angeli Sutton MD (10/01/2020 04:39:Jaqueline Royal RN) 47a. Care: Yes (10/01/2020 04:39:Adrián Hinkle RN) 47b. Date of First Visit: 03/06/2020 00:00 (10/01/2020 04:39:Adrián Hinkle RN) 47c. Date of Last Visit: 09/28/2020 00:00 (10/01/2020 04:39:Adrián Hinkle RN) 47d. Number of Visits: 14 (10/01/2020 04:39:Adrián Hinkle RN) 48a. Number of Prev Live Births: 1 (10/01/2020 04:39:Adrián Hinkle RN) 48b. Now Livin (10/01/2020 04:39:Adrián Hinkle RN) 48c. Live Births Now : 0 (10/01/2020 04:39:QS system process) 48d. Date of Last Live : 12/22/2011 00:00 (10/01/2020 04:39:Adrián Hinkle RN) 48e. Losses: 0 (10/01/2020 04:39:Adrián Hinkle RN) RISK FACTORS IN THIS 49a. Diabetes: No (10/01/2020 04:39:Adrián Hinkle RN) 49b. Hypertension: No (10/01/2020 04:39:Adrián Hinkle RN) 49c. Previous Births: 0 (10/01/2020 04:39:Adrián Hinkle RN) 49d. Stillborns: No (10/01/2020 04:39:Adrián Hinkle RN) 49d. IUGR: No (10/01/2020 04:39:Adrián Hinkle RN) 49e. Infertility Treatment: No (10/01/2020 04:39:Adrián Hinkle RN) 49f. Previous Cesareans: 0 (10/01/2020 04:39:Adrián Hinkle RN) Mother's Height 50b. Height Inches: 64 (10/02/2020 14:21:QS system process) Mother's Weight 51a. Pre- Weight (lbs): 104 (10/01/2020 04:39:Adrián Hinkle RN) 51b. Weight at Delivery (lbs): 145 (10/01/2020 04:42:QS system process) 52. Dt Last Normal Menses Began: 01/06/2020 00:00 (10/01/2020 04:39:Adrián Hinkle RN) Infections Present/Treated 53a. Gonorrhea: No (10/01/2020 04:39:Adrián Hinkle RN) Results this Hospital Visit : Negative (10/01/2020 04:39:Adrián Hinkle RN) 53b. Syphilis: No (10/01/2020 04:39:Adrián Hinkle RN) Results this Hospital Visit: NONREACTIVE (10/01/2020 23:32:QS system process) 53c. Chlamydia: Yes (10/01/2020 04:39:Adrián Hinkle RN) Results this Hospital Visit: Negative (10/01/2020 04:39:Adrián Hinkle RN) 53d. Hepatitis B: No (10/01/2020 04:39:Adrián Hinkle RN) Results this Hospital Visit: Negative (10/01/2020 04:39:Adrián Hinkle RN) 53e. Hepatitis C: Negative (10/01/2020 04:39:Adrián Hinkle RN) 53h. Mother Tested for HBsAG: Yes (10/01/2020 04:39:Adrián Hinkle RN) 53i. Date Tested: 04/08/2020 00:00 (10/01/2020 04:39:Adrián Hinkle RN) 53j. Test Result: Negative (10/01/2020 04:39:Adrián Hinkle RN) Obstetric Procedures 54a, b, c. Obstetric Procedures: Ultrasound; NST (10/01/2020 04:39:Adrián Hinkle RN) Cigarette Smoking Cigarette Smoking: Former Smoker. [id number] (10/01/2020 04:39:Adrián Hinkle RN) 55a. Packs: 1/2 (10/01/2020 04:39:Adrián Hinkle RN) 55b. 1st Trimester of Preg- Ci (10/01/2020 04:39:Adrián Hinkle RN) 55b. Packs: 0 (10/01/2020 04:39:Adrián Hinkle RN) 55c. 2nd Trimester of Preg- Ci (10/01/2020 04:39:Adrián Hinkle RN) 55c. Packs: 0 (10/01/2020 04:39:Adrián Hinkle RN) 55d. 3rd Trimester of Preg- Ci (10/01/2020 04:39:Adrián Hinkle RN) 55d. Packs: 0 (10/01/2020 04:39:Adrián Hinkle RN) Onset of Labor 56a. PROM >12 Hrs: 4.33 (10/01/2020 04:39:QS system process) 56b. Precipitous Labor <3 Hrs: -13 (10/01/2020 04:39:QS system process) 56c. Prolonged Labor > 20 Hrs: -13 (10/01/2020 04:39:QS system process) 57a. Induction of Labor: N/A (10/01/2020 04:39:Emerald Maharaj RN) 57c. Non-Vertex Presentation A: Vertex (10/01/2020 04:39:Jaqueline Royal RN) 57d. Steroids - Lung Mat: None (10/01/2020 04:39:Jaqueline Royal RN) 57d. Steroids - Lung Mat: Not Applicable (10/01/2020 04:39:Jaqueline Royal RN) 57g. Moderate/Heavy Meconium: Clear (10/02/2020 04:56:Sanam Cho RN) 57h. Intolerance of Labor: N/A (10/01/2020 04:39:Jaqueline Royal RN) : N/A (10/01/2020 04:39:Jaqueline Royal RN) 57i. Epidural/Spinal Anesthesia: Epidural (10/01/2020 04:39:Jaqueline Royal RN) Method of Delivery 58a. Forceps - Unsuccessful A: N/A (10/01/2020 04:39:Jaqueline Royal RN) 58b. Vacuum - Unsuccessful A: N/A (10/01/2020 04:39:Jaqueline Royal RN) 58c. Presentation at 58c. Presentation at - A : Vertex (10/01/2020 04:39:Jaqueline Royal RN) 58c. Presentation at - A : N/A (10/01/2020 04:39:Jaqueline Royal RN) 58c. Presentation at - A : Cephalic (10/01/2020 21:36:Sanam Cho RN) Final Route and Method of Del 58d. Baby A Route/Delivery: Vaginal (10/02/2020 09:16:Emerald Maharaj RN) 58e. Trial of Labor Attempted: No (10/01/2020 04:39:Jaqueline Royal RN) 58e. Trial of Labor Attempted A: N/A (10/01/2020 04:39:Jaqueline Royal RN) 58e. Trial of Labor Attempted B: N/A (10/01/2020 04:39:Jaqueline Royal RN) Maternal Morbidity 59b. 3rd or 4th Degree Lacs: None (10/01/2020 04:39:Jaqueline Royal RN) Birthweight Baby A: 3100 (10/01/2020 04:39:Emerald Maharaj RN) 60a. Pounds : 6 (10/01/2020 04:39:QS system process) 60b. Ounces: 13 (10/01/2020 04:39:QS system process) 61. GA at Delivery Baby A: 38.4 (10/01/2020 04:39:Jaqueline Royal RN) : Early Term- 37- 38.6 Weeks (10/01/2020 04:39:QS system process) 62a. 5 Minute Baby A: 9 (10/01/2020 04:39:QS system process)
--- NOTE | 2020-10-02 14:55 | Delivery Summary ---
Del Sum A-C Datetime Report Generated by CPN: 10/02/2020 14:55 DELIVERY PERSONNEL DELIVERY PERSONNEL: [id number] Delivery Doctor:: Angeli Sutton MD Anesthesiologist:: [place] ANIMAL SHELTER MANAGER:: Alannah Ying Labor and Delivery Nurse:: Emerald Maharaj RNglass technician Nurse:: Jaqueline Royal RN Wood Box Maker/LARD RENDERER: Sanam Rawls, ST MATERNAL INFORMATION Delivery Anesthesia: Epidural Medications After Delivery: Pitocin 30 Units in 500ml NS/D5W Estimated Blood Loss (ml): 100 Maternal Complications: None Provider Comments: VMI delivered in ALEX presentation. No nuchal cord. Shoulders and body delivered without difficulty. Cord doubly clamped and cut and infant to maternal abdomen. Delayed cord clamping. Placenta delivered intact sponateously. Mother and baby stable upon provider leaving the room. No perineal lacerations. Good hemostasis. LABOR SUMMARY EDC: 10/12/2020 00:00 No. Babies in Womb: 1 Attempted: No Labor Anesthesia: Epidural LABOR INFORMATION Reason for Induction: Not Applicable Onset of Labor: 10/02/2020 23:00 Complete Dilatation: 10/02/2020 06:46 Oxytocin: N/A Group B Beta Strep: Negative Antibiotics # of Doses: 0 Steroids Given: None Reason Steroids Not Administered: Not Applicable MEMBRANES Membranes Rupture Method: Spontaneous Rupture of Membranes: 10/02/2020 04:56 Length of Rupture (hr): 4.33 Amniotic Fluid Color: Clear Amniotic Fluid Amount: Moderate Amniotic Fluid Odor: None STAGES OF LABOR Stage 1 hr: -16 Stage 1 min: -14 Stage 2 hr: 2 Stage 2 min: 30 Stage 3 hr: 0 Stage 3 min: 4 Total Time in Labor hr: -13 Total Time in Labor min: -40 VAGINAL DELIVERY Episiotomy: None Laceration #1: None Laceration Extension #1: N/A Laceration Repair: Not Applicable Sponge Count Correct: Yes Sharps Count Correct: Yes CSECTION DELIVERY Primary Indication: N/A Secondary Indication: N/A CSection Incidence: N/A Labor: N/A Elective: N/A CSection Incision: N/A BABY A INFORMATION Infant Delivery Date/Time: 10/02/2020 09:16 Method of Delivery: Vaginal Nurse Controlled Delivery: No Born in Route : No : N/A Forceps: N/A Vacuum Extraction: N/A Shoulder Dystocia : No PRESENTATION/POSITION BABY A Presentation: Cephalic Cephalic Presentation: Vertex Breech Presentation: N/A PLACENTA INFORMATION BABY A Placenta Delivery Time : 10/02/2020 09:20 Placenta Method of Delivery: Spontaneous Placenta Status: Delivered SCORES BABY A Heart Rate 1 min: >100 bpm Resp Effort 1 min: Good Cry Reflex Irritability 1 min: Cough or Sneeze or Pulls Away Muscle Tone 1 min: Active Motion Color 1 min: Blue/Pale Resuscitation Effort 1 min: Tactile Stimulation SCORE 1 MIN: 8 Heart Rate 5 min: >100 bpm Resp Effort 5 min: Good Cry Reflex Irritability 5 min: Cough or Sneeze or Pulls Away Muscle Tone 5 min: Active Motion Color 5 min: Body [place], Extremities Blue Resuscitation Effort 5 min: N/A SCORE 5 MIN: 9 INFANT INFORMATION BABY A Gestational Age at Delivery: 38.4 Gestational Status: Early Term- 37- 38.6 Weeks Infant Outcome : Liveborn Infant Condition : Stable Infant Sex: Male IDENTIFICATION BABY A Infant Verification Date/Time: 10/02/2020 10:00 ID Band Number: [id number] Mother's Name Verified: Yes RN Verifying : LDick, RN Additional Verifying Personnel: [facility], RN WEIGHT/LENGTH BABY A Infant Birthweight (gm): 3100 Infant Weight (lb): 6 Weight (oz): 13 Length (in): 19.50 Length (cm): 49.53 CORD INFORMATION BABY A No. Cord Vessels: 3 Nuchal Cord : N/A Cord Blood Taken: Yes-For Eval (Mom's Blood Type - or O+) Infant Suction: None ASSESSMENT BABY A Infant Complications: None Physical Findings at Delivery: Within Normal Limits Infant Respirations: Appears Normal Skin to Skin: No Skin to Skin Time (min): 60 Bank Clerk/ALS Called : No Care By: MSergey Royal RN Transferred To: Remains with Mother BABY B INFORMATION : N/A SIGNATURES Signature: with User ID: [email or web address]
[2020-10-02] MEDS: FERROUS SULFATE 325 MG TABLET PO SCH (17:16)
[2020-10-02] MEDS: DOCUSATE SODIUM 100 MG CAPSULE PO SCH (17:16)
[2020-10-02] MEDS: IBUPROFEN 800 MG TABLET PO SCH ×2 (22:09→22:29)
[2020-10-03] MEDS: IBUPROFEN 800 MG TABLET PO SCH ×4 (05:13→22:03)
[2020-10-03 07:20] LABS: HEMATOCRIT 27.5 % (36.0-47.0); MEAN CORPUSCULAR HEMOGLOBIN 26.3 pg (27.0-33.4); MEAN CORPUSCULAR HGB CONC 32.9 g/dL (32.0-36.0); MEAN CORPUSCULAR VOLUME 80 fl (80-97); PLATELET COUNT 115 10^3/uL (150-450); RED BLOOD COUNT 3.44 10^6/uL (3.72-5.28); RED CELL DISTRIBUTION WIDTH 15.7 % (11.5-14.0); WHITE BLOOD COUNT 14.3 10^3/uL (4.0-10.5)
[2020-10-03 07:23] LABS: HEMOGLOBIN 9.1 g/dL (12.0-15.5)
[2020-10-03] MEDS: SENNOSIDES/DOCUSATE 8.6-50 MG 1 EACH TABLET PO SCH ×2 (09:55→19:50)
[2020-10-03] MEDS: DOCUSATE SODIUM 100 MG CAPSULE PO SCH ×3 (09:55→19:49)
[2020-10-03] MEDS: FERROUS SULFATE 325 MG TABLET PO SCH ×3 (09:55→19:49)
[2020-10-03] MEDS: PRENATAL VITAMIN W DHA CAPSULE PO SCH ×2 (09:55→19:49)
--- NOTE | 2020-10-03 10:40 | PDOC PROGRESS REPORT ---
Subjective Date:: 10/03/20 Subjective:: She is doing well today. Reason For Visit: Physical Exam - Physical Exam Vital Signs: Temp Pulse Resp BP Pulse Ox 97.9 F 81 18 106/70 99 10/03/20 07:16 10/03/20 07:16 10/03/20 07:16 10/03/20 07:16 10/03/20 07:16 Intake & Output 10/02/20 10/03/20 10/04/20 06:59 06:59 06:59 Intake Total 231 980 Balance 231 980 Weight 66 kg General appearance: PRESENT: no acute distress, well-developed, well-nourished Head exam: PRESENT: atraumatic, normocephalic Extremities exam: PRESENT: full ROM. ABSENT: calf tenderness, clubbing, pedal edema Result Laboratory Results: 10/03/20 06:45 10/02/20 10/03/20 10:13 06:45 WBC 11.2 H 14.3 H RBC 4.47 3.44 L Hgb 11.5 L 9.1 L D Hct 36.4 27.5 L MCV 81 80 MCH 25.7 L 26.3 L MCHC 31.6 L 32.9 RDW 15.5 H 15.7 H Plt Count 116 L 115 L Impressions: She is doing well today. Home tomorrow. Assessment & Plan - Time Time Spent with patient: 15-24 minutes Anticipated discharge: Home Anticipated DC Timeframe: within 24 hours - Plan Summary Plan Summary: Plan home tomorrow.
[2020-10-04] MEDS: IBUPROFEN 800 MG TABLET PO SCH (05:35)
[2020-10-04 08:14] VITALS: BP 106/61
[2020-10-04] MEDS: FERROUS SULFATE 325 MG TABLET PO SCH (09:13)
[2020-10-04] MEDS: PRENATAL VITAMIN W DHA CAPSULE PO SCH (09:13)
[2020-10-04] MEDS: SENNOSIDES/DOCUSATE 8.6-50 MG 1 EACH TABLET PO SCH (09:13)
[2020-10-04] MEDS: DOCUSATE SODIUM 100 MG CAPSULE PO SCH (09:13)
--- NOTE | 2020-10-04 10:21 | PDOC DISCHARGE SUMMARY ---
Impression - Admit/DC Date/PCP Admission Date/Primary Care Provider: 10/01/20 23:27 Discharge Date: 10/04/20 - Assessment Summary: She presented in active labor and had a vaginal delivery. She did well and is ready to go home today. - Additional Information Resuscitation Status: Full Code Discharge Diet: As Tolerated Discharge Activity: Pelvic Rest, Slowly Increase Activity Prescriptions: Ibuprofen [Motrin 800 mg Tablet] 800 mg PO Q8 #30 tablet Home Medications: Vits96/Iron Fum/Folic [ Tablet] 1 each PO DAILY 10/01/20 Ibuprofen [Motrin 800 mg Tablet] 800 mg PO Q8 #30 tablet 10/04/20 History of Present Illiness History of Present Illness: MARK WEISS is a 25 year old female Physical Exam - Physical Exam Vital Signs: Temp Pulse Resp BP Pulse Ox 97.9 F 75 16 106/61 99 10/04/20 09:16 10/04/20 07:43 10/04/20 07:43 10/04/20 07:43 10/04/20 07:43 Intake & Output 10/03/20 10/04/20 10/05/20 06:59 06:59 06:59 Intake Total 980 Output Total 250 Balance 980 -250 Results Laboratory Results: WBC 14.3 10^3/uL (4.0-10.5) H 10/03/20 06:45 RBC 3.44 10^6/uL (3.72-5.28) L 10/03/20 06:45 Hgb 9.1 g/dL (12.0-15.5) L D 10/03/20 06:45 Hct 27.5 % (36.0-47.0) L 10/03/20 06:45 MCV 80 fl (80-97) 10/03/20 06:45 MCH 26.3 pg (27.0-33.4) L 10/03/20 06:45 MCHC 32.9 g/dL (32.0-36.0) 10/03/20 06:45 RDW 15.7 % (11.5-14.0) H 10/03/20 06:45 Plt Count 115 10^3/uL (150-450) L 10/03/20 06:45 Lymph % (Auto) 15.6 % (13-45) 10/01/20 23:32 [place] % (Auto) 8.5 % (3-13) 10/01/20 23:32 Eos % (Auto) 0.1 % (0-6) 10/01/20 23:32 Baso % (Auto) 0.5 % (0-2) 10/01/20 23:32 Absolute Neuts (auto) 7.3 10^3/uL (1.7-8.2) 10/01/20 23:32 Absolute Lymphs (auto) 1.5 10^3/uL (0.5-4.7) 10/01/20 23:32 Absolute Monos (auto) 0.8 10^3/uL (0.1-1.4) 10/01/20 23:32 Absolute Eos (auto) 0.0 10^3/uL (0.0-0.6) 10/01/20 23:32 Absolute Basos (auto) 0.0 10^3/uL (0.0-0.2) 10/01/20 23:32 Seg Neutrophils % 75.3 % (42-78) 10/01/20 23:32 Urine Color STRAW 10/01/20 19:55 Urine Appearance CLEAR 10/01/20 19:55 Urine pH 6.0 (5.0-9.0) 10/01/20 19:55 Ur Specific [place] 1.004 10/01/20 19:55 Urine Protein NEGATIVE mg/dL (NEGATIVE) 10/01/20 19:55 Urine Glucose (UA) NEGATIVE mg/dL (NEGATIVE) 10/01/20 19:55 Urine Ketones NEGATIVE mg/dL (NEGATIVE) 10/01/20 19:55 Urine Blood SMALL (NEGATIVE) H 10/01/20 19:55 Urine Nitrite NEGATIVE (NEGATIVE) 10/01/20 19:55 Urine Bilirubin NEGATIVE (NEGATIVE) 10/01/20 19:55 Urine Urobilinogen NEGATIVE mg/dL (<2.0) 10/01/20 19:55 Ur Leukocyte Esterase NEGATIVE (NEGATIVE) 10/01/20 19:55 Urine Ascorbic Acid NEGATIVE (NEGATIVE) 10/01/20 19:55 Urine Opiates Screen NEGATIVE 10/01/20 19:55 Urine Methadone Screen NEGATIVE 10/01/20 19:55 Ur Barbiturates Screen NEGATIVE 10/01/20 19:55 Ur Phencyclidine Scrn NEGATIVE 10/01/20 19:55 Ur Amphetamines Screen NEGATIVE 10/01/20 19:55 U Benzodiazepines Scrn NEGATIVE 10/01/20 19:55 Urine Cocaine Screen NEGATIVE 10/01/20 19:55 U Marijuana (THC) Screen NEGATIVE 10/01/20 19:55 RPR NONREACTIVE (NONREACTIVE) 10/01/20 23:32 Blood Type O POSITIVE 10/01/20 23:32 Antibody Screen NEGATIVE 10/01/20 23:32 Stroke Is this a Stroke Patient?: No Acute Heart Failure Is this a Heart Failure Patient?: No
== END 2020-10-04 12:30 | disposition home or self-care (01) | DRG 807 ==
LOC: LC 19:40 → LR 23:27 → 2S 10-02 16:00
PROVIDERS: ADMIT Obstetrics & Gynecology; ATTEND Student in an Organized Health Care Education/Training Program
PROC: 10E0XZZ Delivery of Products of Conception, External Approach (ICD-10-PCS; principal; 2020-10-02)
DX: O80 Encounter for full-term uncomplicated delivery (principal); Z37.0 Single live birth; Z87.891 Personal history of nicotine dependence; Z3A.38 38 weeks gestation of pregnancy
CPT/HCPCS: 1967; 36415; 80307; 81005; 85025; 85027; 86592; 86850; 86900; 86901; J2590; J2795; J3010; J3490